=== PATIENT | female | born 2000 | race Two or more races ===

== ENCOUNTER → 2020-12-31 | Outpatient (CLI) | payer OTHER | END | disposition home or self-care (01) | LOC: PPH VACUNA | DX: Z23 Encounter for immunization (principal) ==

== ENCOUNTER 2022-11-01 04:59 | Emergency (ER) | payer OTHER ==
[~2022-11-01] VITALS: Ht 162.6 cm; Wt 61.2 kg
[2022-11-01] MEDS ORDERED: CEPHALEXIN500 MG PO (08:12)
== END 2022-11-01 08:30 | disposition home or self-care (01) ==
LOC: ER 04:59
DX: N39.0 Urinary tract infection, site not specified (principal)

== ENCOUNTER 2023-09-21 07:44 | Emergency (ER) | payer OTHER ==
[~2023-09-21] VITALS: Ht 160 cm; Wt 64.0 kg
[~2023-09-21 07:44] MED LIST: CEPHALEXIN500 MG PO
[2023-09-21] MEDS ORDERED: KETOROLAC TROMETHAMINE 30 MG VIAL IM STA (08:56)
[2023-09-21 09:25] LABS: URINE APPEARANCE Cloudy; URINE BILIRRUBIN Negative (NEGATIVE); URINE BLOOD Negative; URINE COLOR Yellow; URINE GLUCOSE Negative (NEGATIVE); URINE LEUKOCYTE Large; URINE NITRATE Negative; URINE PROTEIN Negative (NEGATIVE); URINE UROBILINOGEN 0.2 E.U./dl
[2023-09-21 09:28] LABS: HEMATOCRIT 43.4 % (36.0-45.00); MEAN CELL VOLUME 91.2 fL (80.00-100.00); MEAN CORPUSCULAR HEMOGLOBIN 31.5 pg (27.00-32.0); MEAN CORPUSCULAR HGB CONC 34.6 g/dl (32.0-36.0); PLATELET COUNT 214 K/uL (150-450); RED BLOOD COUNT 4.76 M/uL (4.00-6.00); RED CELL DISTRIBUTION WIDTH 13.4 % (11.5-14.5)
[2023-09-21 09:28] LABS: URINE BACTERIA 2826.1 uL (0.0-1933); URINE EPITHELIAL CELLS 83.1 uL (0.0-38.8); URINE RBC 37.7 uL (0.0-20.8)
[2023-09-21 10:02] LABS: CALCIUM 9.9 mg/dL (8.5-10.1); CREATININE SERUM 0.71 mg/dL (0.55-1.02); GFR 100.3; POTASSIUM 3.95 mEq/L (3.5-5.1)
[2023-09-21] MEDS ORDERED: CEFTRIAXONE SODIUM 1,000 MG VIAL IV STA (11:42)
== END 2023-09-21 11:55 | disposition home or self-care (01) ==
LOC: ER 07:44
PROVIDERS: General Practice
DX: R10.2 Pelvic and perineal pain (principal); D25.9 Leiomyoma of uterus, unspecified

== ENCOUNTER 2024-04-21 07:47 | Outpatient (CLI) | payer OTHER | END 2024-04-21 07:53 | disposition home or self-care (01) | LOC: SONOGRAMA 07:47 | DX: R10.2 Pelvic and perineal pain (principal) ==

== ENCOUNTER 2024-04-24 12:04 | Emergency (ER) | payer OTHER ==
[~2024-04-24] VITALS: Ht 160 cm; Wt 62.6 kg
[2024-04-24 12:41] VITALS: BP 111/75; O2SAT 98
[2024-04-24 13:21] LABS: URINE APPEARANCE Clear; URINE BILIRRUBIN Negative (NEGATIVE); URINE BLOOD Negative; URINE COLOR Yellow; URINE GLUCOSE Negative (NEGATIVE); URINE KETONE Negative (NEGATIVE); URINE LEUKOCYTE Large; URINE NITRATE Negative; URINE PROTEIN Negative (NEGATIVE); URINE UROBILINOGEN 0.2 E.U./dl
[2024-04-24 13:24] LABS: URINE EPITHELIAL CELLS 96.7 uL (0.0-38.8); URINE RBC 9.1 uL (0.0-20.8); URINE WBC 76.5 uL (0.0-23.2)
[2024-04-24 13:35] LABS: HEMATOCRIT 37.1 % (36.0-45.00); HEMOGLOBIN 12.9 g/dL (12.0-15.00); MEAN CELL VOLUME 92.5 fL (80.00-100.00); MEAN CORPUSCULAR HEMOGLOBIN 32.1 pg (27.00-32.0); MEAN CORPUSCULAR HGB CONC 34.8 g/dl (32.0-36.0); PLATELET COUNT 201 K/uL (150-450); RED BLOOD COUNT 4.02 M/uL (4.00-6.00)
[2024-04-24 13:49] LABS: URINE CAST 0.15 uL (0.0-1.40)
[2024-04-24 13:57] LABS: URINE TRICHOMONAS FEW
[2024-04-24] MEDS ORDERED: PEPCID AC20 MG PO (17:37)
[2024-04-24] MEDS ORDERED: BACTRIM DS TAB1 EACH PO (17:37)
[2024-04-24] MEDS ORDERED: NEURONTIN300 MG PO (17:37)
== END 2024-04-24 17:42 | disposition home or self-care (01) ==
LOC: ER 12:05
PROVIDERS: Emergency Medicine
DX: R10.2 Pelvic and perineal pain (principal); N39.0 Urinary tract infection, site not specified